=== PATIENT | female | born 1975 | race Caucasian/White ===

== ENCOUNTER 2017-06-18 09:47 | Inpatient (IN) | payer OTHER ==
[~2017-06-18] VITALS: Ht 167.6 cm; Wt 61.4 kg
[2017-06-18 10:04] LABS: BASOPHIL (%) 0.5 % (0-1); EOSINOPHIL (%) 1.1 % (0-5); HEMATOCRIT 40.1 % (36.0-46.0); HEMOGLOBIN 13.5 G/DL (11.9-15.5); IMMATURE GRANULOCYTE (%) 0.3 % (0.0-0.7); LYMPHOCYTE (%) 14.5 % (15-42); LYMPHOCYTE COUNT 0.5 K/uL (1.0-2.8); MCH 29.9 PG (29.0-34.0); MCHC 33.7 G/DL (30.0-36.0); MCV 88.9 FL (83-99); MONOCYTE (%) 12.8 % (3-12); MONOCYTE COUNT 0.5 K/uL (0-0.8); NEUTROPHIL (%) 70.8 % (45-76); NEUTROPHIL COUNT 2.6 K/uL (1.8-6.4); PLATELET COUNT 139 K/uL (156-360); RBC DIS.WIDTH-CV 12.5 % (11.8-14.6); RBC DIS.WIDTH-SD 40.7 % (39-53); RED BLOOD COUNT 4.51 M/uL (3.80-5.20); WHITE BLOOD COUNT 3.7 K/uL (4.1-10.2)
[2017-06-18 10:15] LABS: AMYLASE 37 IU/L (1-118); CHLORIDE 107 mEq/L (99-109); POTASSIUM 3.7 mEq/L (3.7-5.4); SODIUM 136 mEq/L (136-147)
[2017-06-18 10:16] LABS: GLUCOSE 128 mg/dL (70-99)
[2017-06-18 10:20] LABS: CREATININE 0.8 mg/dL (0.6-1.3); SERUM ETHYL ALCOHOL < 10 mg/dL
[2017-06-18 10:21] LABS: UREA NITROGEN (BUN) 10 mg/dL (9-23)
[2017-06-18 10:22] LABS: GFR ESTIMATE (CALCULATED) > 59 mL/min/
[2017-06-18 10:23] LABS: LIPASE 16 U/L (1.0-51.0)
[2017-06-18 10:30] LABS: QUANTITATIVE HCG < 4.0 MIU/ML
[2017-06-18 10:51] LABS: ACETAMINOPHEN (TYLENOL) < 10 mcg/mL (10-30); SALICYLATE < 5.0 MG/DL (15-30)
[2017-06-18 11:01] LABS: CREATINE KINASE 114 IU/L (1-294)
[2017-06-18] MEDS ORDERED: LEVETIRACETAM500 MG PO (12:34)
[2017-06-18] MEDS ORDERED: LAMICTAL XR200 MG PO (12:35)
[2017-06-18] MEDS ORDERED: CLONAZEPAM0.5 MG PO (12:45)
[2017-06-18] MEDS ORDERED: LORAZEPAM0.5 MG PO (12:45)
[2017-06-18 12:50] LABS: D-DIMER ELISA < 150.00 ng/mLDDU (<230)
[2017-06-18 13:02] LABS: TROP-I INTERPRETATION NEGATIVE; TROPONIN-I < 0.01 ng/mL (0.0-0.30)
[2017-06-18 13:59] LABS: BILIRUBIN NEGATIVE; BLOOD NEGATIVE; COLOR YELLOW ((YELLOW)); GLUCOSE (STRIP) NEGATIVE; KETONES 20; LEUKOCYTES NEGATIVE; NITRITE NEGATIVE; PROTEIN (STRIP) NEGATIVE; SPECIFIC GRAVITY 1.019 (1.000-1.030); UROBILINOGEN 0.2 MG/DL (0.2-1.0)
[2017-06-18 14:01] LABS: APPEARANCE CLEAR ((CLEAR)); UCUL ADDED? NO
[2017-06-18 14:15] LABS: AMPHETAMINE NEGATIVE (500 ng/mL); BENZODIAZEPINES PRESUMPTIVE POSITIVE (150 ng/mL); COCAINE NEGATIVE (150 ng/mL); METHAMPHETAMINE NEGATIVE (500 ng/mL); OPIATES (MORPHINE) NEGATIVE (100 ng/mL); PHENCYCLIDINE PRESUMPTIVE POSITIVE (25 ng/mL); THC CANNABINOIDS NEGATIVE (50 ng/mL)
[2017-06-18 14:16] LABS: BARBITURATES NEGATIVE (200 ng/mL); BUPRENORPHINE NEGATIVE (10 ng/mL); METHADONE NEGATIVE (200 ng/mL); OXYCODONE NEGATIVE (100 ng/mL); PROPOXYPHENE NEGATIVE (300 ng/mL); TRICYCLIC ANTIDEPRESSANTS NEGATIVE (300 ng/mL)
[2017-06-18 14:58] VITALS: BP 125/68
[2017-06-18 15:07] LABS: BENZODIAZEPINES, URINE SCREEN Negative (200 ng/mL)
[2017-06-18 19:30] VITALS: BP 126/66
[2017-06-19] VITALS (7 sets, daily range): BP systolic 105–141; BP diastolic 60–84
[2017-06-19 06:35] LABS: BASOPHIL (%) 0.2 % (0-1); EOSINOPHIL (%) 0 % (0-5); HEMATOCRIT 35.9 % (36.0-46.0); IMMATURE GRANULOCYTE (%) 0.4 % (0.0-0.7); LYMPHOCYTE (%) 8.5 % (15-42); LYMPHOCYTE COUNT 0.5 K/uL (1.0-2.8); MCH 30.2 PG (29.0-34.0); MCHC 33.4 G/DL (30.0-36.0); MCV 90.4 FL (83-99); MONOCYTE COUNT 0.4 K/uL (0-0.8); NEUTROPHIL (%) 82.9 % (45-76); NEUTROPHIL COUNT 4.6 K/uL (1.8-6.4); PLATELET COUNT 129 K/uL (156-360); RBC DIS.WIDTH-CV 12.7 % (11.8-14.6); RBC DIS.WIDTH-SD 41.8 % (39-53); RED BLOOD COUNT 3.97 M/uL (3.80-5.20); WHITE BLOOD COUNT 5.5 K/uL (4.1-10.2)
[2017-06-19 06:55] LABS: ALBUMIN 3.9 G/DL (3.2-4.8); ALKALINE PHOSPHATASE 48 IU/L (3-129); ALT (GPT) 15 IU/L (3-49); AST (GOT) 15 IU/L (2-34); CHLORIDE 104 MEQ/L (99-109); CREATININE 0.7 MG/DL (0.6-1.3); DIRECT BILIRUBIN 0.1 mg/dL (0.0-0.3); GFR ESTIMATE (CALCULATED) > 59 mL/min/; GLUCOSE 110 mg/dL (70-99); POTASSIUM 4.3 MEQ/L (3.7-5.4); SODIUM 138 MEQ/L (136-147); TOTAL BILIRUBIN 0.3 MG/DL (0.0-1.0); TOTAL PROTEIN 5.9 G/DL (6.4-8.3); UREA NITROGEN (BUN) 7 mg/dL (9-23)
[2017-06-20 03:35] VITALS: BP 126/73
[2017-06-20 06:00] LABS: ALBUMIN 3.3 G/DL (3.2-4.8); ALKALINE PHOSPHATASE 38 IU/L (3-129); ALT (GPT) 12 IU/L (3-49); AST (GOT) 13 IU/L (2-34); CHLORIDE 109 MEQ/L (99-109); CREATININE 0.7 MG/DL (0.6-1.3); GFR ESTIMATE (CALCULATED) > 59 mL/min/; GLUCOSE 91 mg/dL (70-99); SODIUM 140 MEQ/L (136-147); UREA NITROGEN (BUN) 7 mg/dL (9-23)
[2017-06-20 06:01] LABS: POTASSIUM 3.3 MEQ/L (3.7-5.4); TOTAL BILIRUBIN 0.2 MG/DL (0.0-1.0)
[2017-06-20 07:00] VITALS: BP 117/78
[2017-06-20 12:20] VITALS: BP 119/74
[2017-06-20 15:57] VITALS: BP 124/76
[2017-06-20 20:53] VITALS: BP 130/64
[2017-06-21 01:25] VITALS: BP 137/75
[2017-06-21 04:33] VITALS: BP 123/68
[2017-06-21 06:09] LABS: HEMATOCRIT 31.9 % (36.0-46.0); HEMOGLOBIN 10.5 G/DL (11.9-15.5); MCH 29.2 PG (29.0-34.0); MCHC 32.9 G/DL (30.0-36.0); MCV 88.9 FL (83-99); PLATELET COUNT 118 K/uL (156-360); RBC DIS.WIDTH-CV 12.4 % (11.8-14.6); RBC DIS.WIDTH-SD 40.3 % (39-53); RED BLOOD COUNT 3.59 M/uL (3.80-5.20); WHITE BLOOD COUNT 2.5 K/uL (4.1-10.2)
[2017-06-21 06:27] LABS: CHLORIDE 107 MEQ/L (99-109); CREATININE 0.7 MG/DL (0.6-1.3); GFR ESTIMATE (CALCULATED) > 59 mL/min/; GLUCOSE 83 mg/dL (70-99); MAGNESIUM 1.7 mg/dl (1.3-2.7); POTASSIUM 3.5 MEQ/L (3.7-5.4); SODIUM 140 MEQ/L (136-147); UREA NITROGEN (BUN) 6 mg/dL (9-23)
[2017-06-21 09:38] VITALS: BP 108/56
[2017-06-21 11:00] VITALS: BP 115/61
[2017-06-21] MEDS ORDERED: LEVETIRACETAM500 MG PO (12:50)
[2017-06-21] MEDS ORDERED: CLONAZEPAM0.5 MG PO (12:50)
== END 2017-06-21 13:36 | disposition home or self-care (01) | DRG 101 ==
LOC: EME 09:47 → EDOF 12:12 → 5WEST 12:12 → EDOF 12:12 → ENRESERV 12:18 → EDOF 12:28 → ENRESERV 13:20 → 5WEST 14:17 → CANRESERV 06-20 11:05 → ENRESERV 06-20 11:05 → 5WEST 06-21 13:36
PROVIDERS: Emergency Medicine; Hospitalist; Internal Medicine
PROC: 0HQ1XZZ Repair Face Skin, External Approach (ICD-10-PCS; principal; 2017-06-18)
DX: G40.909 Epilepsy, unspecified, not intractable, without status epilepticus (principal); R55 Syncope and collapse; F16.10 Hallucinogen abuse, uncomplicated; Z85.841 Personal history of malignant neoplasm of brain; F41.9 Anxiety disorder, unspecified; S01.419A Laceration without foreign body of unspecified cheek and temporomandibular area, initial encounter; W19.XXXA Unspecified fall, initial encounter; R45.86 Emotional lability; R11.2 Nausea with vomiting, unspecified; R40.0 Somnolence; R44.3 Hallucinations, unspecified; R50.9 Fever, unspecified
CPT/HCPCS: 70450; 70486; 71010; 72125; 73522; 80048; 80053; 80076; 80175 90; 80177 90; 81003; 82150; 82550; 83605; 83690; 83735; 84484; 84702; 84999; 85025; 85027; 85379; 86850; 86900; 86901; 93005; 95819; 99281; 99285; G0378; G0480; J1650; J1953; J2060; J2405; J7030; J7050